=== PATIENT | male | born 1990 | race African-American/Black ===

== ENCOUNTER 2023-02-11 11:42 | Emergency (ER) | payer OTHER, SELFPAY ==
[2023-02-11 12:14] VITALS: BP 133/111; PULSE 69; RESP 18; TEMP 36.4; O2SAT 97; BMI 41.3
--- NOTE | 2023-02-11 12:14 | ED.URI ---
HPI - URI/Sore Throat General Chief Complaint: General Medical Stated Complaint: Strep throat Time Seen by Provider: 02/11/23 13:31 Source: patient, RN notes reviewed and old records reviewed Mode of arrival: ambulatory Limitations: no limitations History of Present Illness HPI Narrative: 32-year-old male presents for evaluation of a sore throat. Patient reports that he was diagnosed with strep throat about 2 weeks ago He was given penicillin 500 mg t.i.d. He reports his last dose was 4 days ago Starting yesterday his symptoms returned and he reports that he realized in a he did not change his toothbrush so believes he reinfect himself Denies any fevers, chills but has painful swallowing. Related Data Previous Rx's Medication Instructions Recorded amoxicillin 875 mg-potassium 1 tab PO BID #14 tabs 02/11/23 clavulanate 125 mg tablet Allergies Allergy/AdvReac Type Severity Reaction Status Date / Time No Known Allergies Allergy Verified 02/11/23 12:13 Review of Systems Constitutional: Constitutional: Denies chills and Denies fever(s) ENT: Reports sore throat Cardiovascular: Cardiovascular: Denies chest pain and Denies dyspnea Respiratory: Respiratory: Denies cough and Denies dyspnea Gastrointestinal: Gastrointestinal: Denies abdominal pain and Denies vomiting PMFSH Social History Social History Advance Directives: No Physical Exam Vital Signs: Vital Signs: Last Vital Signs Temp 97.6 F 02/11/23 12:14 Pulse 83 02/11/23 13:30 Resp 18 02/11/23 13:30 BP 129/80 02/11/23 13:30 Pulse Ox 96 02/11/23 13:30 O2 Del Method Room Air 02/11/23 13:30 BMI result Body Mass Index 41.3 Const: General: healthy appearing, comfortable, no acute distress, alert and awake Nutritional Appearance: well nourished Orientation/consciousness: patient oriented x3 HEENT: Other: Patient has bilateral tonsillar hypertrophy with no exudates. The retropharynx is erythematous. No evident peritonsillar abscess. Airway is widely patent Head: Yes normocephalic and Yes atraumatic Eyes: Eyelids: Yes eyelids normal Conjunctivae: conjunctivae normal Sclerae: sclerae normal Corneas: corneas normal Pupils: Equal, round and reactive pupils present EOM: EOMs intact bilaterally Neck: Neck: Yes full ROM Resp: Effort & Inspection: normal respiratory effort, able to speak in complete sentences and not labored Skin: General skin exam: elasticity normal Neuro: General: patient oriented x3 Cranial nerves: Yes Equal, round and reactive pupils present and Yes Bilaterally intact EOM present Cognition (Neuro): normal cognition Course Course Course Narrative: RME: 32yo M w/no sig PMHx c/o strep throat 2 weeks ago, finished course of PNC about 4 days ago, now reports sore throat returned w/painful swallowing 2-3 days ago. Admits sx resolved briefly prior to returning. denies fever +bilateral tonsillar swelling, erythema and exudates, uvula midline Rapid strep & COVID testing ordered Full HPI, ROS and PE to be performed by primary ED provider. Medical Decision Making Medical Decision Making [facility] Narrative: 32-year-old male presents for evaluation of sore throat. He tested positive for strep throat again. We will start the patient on Augmentin to cover strep throat again. There is no evidence of abscess, the patient is easily able to swallow, just has pain while doing so, so I do not feel there is any indication for labs or CT imaging Differential Diagnosis Differential Diagnoses: The differential diagnosis associated with the presentation includes Strep pharyngitis Exudative pharyngitis Peritonsillar abscess Mononucleosis Viral syndrome Upper respiratory infection Lab Data Labs: Lab Results 02/11/23 02/11/23 Range/Units 12:19 12:20 COVID-19 (ALFREDO) Negative (Negative) COVID-19 Clin Com See Note S. pyogenes GrpA PATRICIO Positive A (Negative) Discharge Plan Discharge Clinical Impression: Acute streptococcal pharyngitis Patient Disposition: Home, Self-Care Instructions: Strep Throat (ED) Additional Instructions: Take the Augmentin twice daily for the next 7 days. You may use ibuprofen/tunnel for your pain You may also use salt water gargles to help with sore throat Be sure to through your toothbrush out after take her last dose of antibiotic and get a new toothbrush Follow-up with your primary doctor or return for new or worsening symptoms Prescriptions: New amoxicillin-pot clavulanate 875-125 mg tablet 1 tab PO BID Qty: 14 0RF Interventions: ED Discharge Assessment Last Done: 02/11/23 13:43 Discharge Date/Time: 02/11/23 13:56
[2023-02-11 12:43] LABS: IDNOW Serial# 08D9AD1C; Strep A Nucleic Acid Positive (Negative)
[2023-02-11 12:48] LABS: COVID-19 Test Negative (Negative); IDNOW Serial# BCCEAD1C
[2023-02-11 13:30] VITALS: BP 129/80; PULSE 83; RESP 18; O2SAT 96
== END 2023-02-11 13:56 | disposition home or self-care (01) ==
PROVIDERS: Physician Assistant; Emergency Provider Student in an Organized Health Care Education/Training Program
DX: J02.0 Streptococcal pharyngitis (principal); Z20.822 Contact with and (suspected) exposure to COVID-19
CPT/HCPCS: 87635; 87651; 99283